=== PATIENT | female | born 1970 | race Caucasian/White ===

== ENCOUNTER 2016-07-29 22:11 | Emergency (ER) | payer MEDICARE | END 2016-07-30 03:19 | disposition home or self-care (01) | LOC: ER1 22:11 | DX: J02.9 Acute pharyngitis, unspecified (principal); K21.9 Gastro-esophageal reflux disease without esophagitis; F32.9 Major depressive disorder, single episode, unspecified; G89.29 Other chronic pain; F17.210 Nicotine dependence, cigarettes, uncomplicated; Z88.5 Allergy status to narcotic agent | CPT/HCPCS: 87081; 87880; 99283 ==

== ENCOUNTER 2016-08-21 14:59 | Emergency (ER) | payer MEDICARE ==
[2016-08-21 16:00] LABS: RED BLOOD COUNT 4.27 M/UL (4.00-5.10); WHITE BLOOD COUNT 9.8 K/UL (4.5-11.0)
[2016-08-21 16:24] LABS: BUN/CREATININE RATIO 23 (0-10)
== END 2016-08-21 17:49 | disposition left against medical advice (07) ==
LOC: ER1 14:59
PROVIDERS: Emergency Medicine
DX: R51 Headache (principal); E78.00 Pure hypercholesterolemia, unspecified; F17.200 Nicotine dependence, unspecified, uncomplicated; Z79.899 Other long term (current) drug therapy; Z86.73 Personal history of transient ischemic attack (TIA), and cerebral infarction without residual deficits
CPT/HCPCS: 36415; 70450; 80053; 85025; 85610; 85730; 86140; 96374; 96375; 99284; J2270; J2405; Q9963

== ENCOUNTER → 2016-09-04 | Outpatient (CLI) | payer MEDICARE | LOC: RAD 09:23 | DX: M25.461 Effusion, right knee (principal); M25.462 Effusion, left knee | CPT/HCPCS: 73564 ==